=== PATIENT | female | born 1965 | race American Indian/Alaskan Native ===

== ENCOUNTER 2017-03-04 15:24 | Outpatient (CLI) | payer OTHER | END 2017-03-04 15:25 | disposition home or self-care (01) | LOC: LABHHL 15:24 | PROVIDERS: ATTEND Surgery | DX: N63 Unspecified lump in breast (principal) | CPT/HCPCS: 88305 ==

== ENCOUNTER 2017-09-16 14:40 | Emergency (ER) | payer SELFPAY ==
[2017-09-16 14:48] VITALS: BP 133/77
[2017-09-16 15:19] LABS: Basophils % (Auto) 0.6 % (0.0-1.8); Eosinophils % (Auto) 0.9 % (0.0-4.3); Hemoglobin 9.3 gm/dl (10.1-14.3); Mean Corpuscular HGB Conc 31 % (30-34); Platelet Count 307 K/mm3 (140-440); Red Blood Count 5.09 M/mm3 (3.65-5.03); Red Cell Distribution Width 19.9 % (13.2-15.2); White Blood Count 4.4 K/mm3 (4.5-11.0)
[2017-09-16 15:44] LABS: Mean Corpuscular Hemoglobin 18 pg (28-32); Mean Corpuscular Volume 59 fl (79-97)
[2017-09-16 16:59] LABS: Bilirubin,Urine NEG (Negative); Blood,Urine NEG (Negative); Ketones,Urine NEG (Negative); Leukocyte Esterase,Urine NEG (Negative); Mucus,Urine FEW /HPF; Nitrite,Urine NEG (Negative); Protein,Urine <15 mg/dL mg/dL (Negative); RBC,Urine < 1.0 /HPF (0.0-6.0); Urobilinogen,Urine < 2.0 mg/dL (<2.0)
== END 2017-09-16 21:44 | disposition left against medical advice (07) ==
LOC: ED 14:40
DX: N93.9 Abnormal uterine and vaginal bleeding, unspecified (principal); Z53.21 Procedure and treatment not carried out due to patient leaving prior to being seen by health care provider
CPT/HCPCS: 36415; 81001; 84702; 85025; 86850; 86900; 86901

== ENCOUNTER 2019-04-20 10:31 | Emergency (ER) | payer OTHER ==
[2019-04-20 10:38] VITALS: BP 152/84
[2019-04-20 11:49] LABS: Basophils % (Auto) 0.5 % (0.0-1.8); Eosinophils # (Auto) 0.1 K/mm3 (0.0-0.4); Eosinophils % (Auto) 1.3 % (0.0-4.3); Hematocrit 37.4 % (30.3-42.9); Hemoglobin 12.5 gm/dl (10.1-14.3); Lymphocytes # (Auto) 1.6 K/mm3 (1.2-5.4); Mean Corpuscular HGB Conc 33 % (30-34); Mean Corpuscular Volume 74 fl (79-97); Monocytes # (Auto) 0.4 K/mm3 (0.0-0.8); Monocytes % (Auto) 8.2 % (0.0-7.3); Platelet Count 224 K/mm3 (140-440); Red Blood Count 5.04 M/mm3 (3.65-5.03); Red Cell Distribution Width 17.3 % (13.2-15.2)
[2019-04-20 12:09] LABS: BUN/Creatinine Ratio 16; Blood Urea Nitrogen 13 mg/dL (7-17); Calcium 8.7 mg/dL (8.4-10.2); Hemolysis Index 22
--- NOTE | 2019-04-20 13:57 | Emergency Department Report ---
ED General Adult HPI - General Chief complaint: Extremity Injury, Upper Stated complaint: L ARM NUMBNESS/TINGLING Time Seen by Provider: 04/20/19 11:58 Source: patient Mode of arrival: Ambulatory Limitations: No Limitations - History of Present Illness Initial comments: Patient presents to the emergency department with a chief complaint of numbness and tingling of the left arm and mild weakness for the last 2 weeks. Patient also complains of a mild headache that she describes as throbbing in nature and not the worst headache of her life. Patient also endorses left-sided chest pain 2 weeks. Chest pain has been continuous for 2 weeks. -: Gradual Location: head, chest Radiation: non-radiation Severity scale (0 -10): 4 Quality: aching Consistency: constant Improves with: none Worsens with: none Associated Symptoms: denies other symptoms Treatments Prior to Arrival: none - Related Data Previous Rx's Medication Instructions Recorded Last Taken Type HYDROcodone/APAP 5-325 [[place] 1 each PO Q6HR PRN #30 tablet 04/01/17 Unknown Rx 5/325] Ibuprofen [Motrin] 800 mg PO Q8HR PRN #30 tablet 04/20/19 Unknown Rx Prednisone [predniSONE 10 mg 10 mg PO .TAPER #1 tab.ds.pk 04/20/19 Unknown Rx (6-Day Pack, 21 Tabs)] Allergies Allergy/AdvReac Type Severity Reaction Status Date / Time No Known Allergies Allergy Verified 04/20/19 10:33 ED Review of Systems ROS: Stated complaint: L ARM NUMBNESS/TINGLING Other details as noted in HPI Constitutional: denies: chills, fever Eyes: denies: eye pain, eye discharge, vision change ENT: denies: ear pain, throat pain Respiratory: denies: cough, shortness of breath, wheezing Cardiovascular: denies: chest pain, palpitations Endocrine: no symptoms reported Gastrointestinal: denies: abdominal pain, nausea, diarrhea Genitourinary: denies: urgency, dysuria, discharge Musculoskeletal: denies: back pain, joint swelling, arthralgia Skin: denies: rash, lesions Neurological: denies: headache, weakness, paresthesias Psychiatric: denies: anxiety, depression Hematological/Lymphatic: denies: easy bleeding, easy bruising ED Past Medical Hx - Past Medical History Previous Medical History?: No - Surgical History Hx Breast Surgery: Yes Additional Surgical History: - Social History Smoking Status: Never Smoker Substance Use Type: None - Medications Home Medications: Home Medications Medication Instructions Recorded Confirmed Last Taken Type HYDROcodone/APAP 5-325 [[place] 1 each PO Q6HR PRN #30 tablet 04/01/17 Unknown Rx 5/325] Ibuprofen [Motrin] 800 mg PO Q8HR PRN #30 tablet 04/20/19 Unknown Rx Prednisone [predniSONE 10 mg 10 mg PO .TAPER #1 tab.ds.pk 04/20/19 Unknown Rx (6-Day Pack, 21 Tabs)] ED Physical Exam - General Limitations: No Limitations General appearance: alert, in no apparent distress - Head Head exam: Present: atraumatic, normocephalic - Eye Eye exam: Present: normal appearance, PERRL, EOMI - ENT ENT exam: Present: mucous membranes moist - Neck Neck exam: Present: other (tapping midline C-spine recreates numbness and tingling of left arm) - Respiratory Respiratory exam: Present: normal lung sounds bilaterally, wheezes. Absent: respiratory distress, rales - Cardiovascular Cardiovascular Exam: Present: regular rate, normal rhythm. Absent: systolic murmur, diastolic murmur, rubs, gallop - GI/Abdominal GI/Abdominal exam: Present: soft, normal bowel sounds. Absent: distended, tenderness - Extremities Exam Extremities exam: Present: normal inspection, other (5/5/ dtrength B/L UE) - Back Exam Back exam: Present: normal inspection - Neurological Exam Neurological exam: Present: alert, oriented X3, CN II-XII intact. Absent: motor sensory deficit - Psychiatric Psychiatric exam: Present: normal affect, normal mood - Skin Skin exam: Present: warm, dry, intact, normal color. Absent: rash ED Course Vital Signs 04/20/19 04/20/19 04/20/19 10:37 12:09 12:16 Temperature 98.2 F Pulse Rate 78 66 Respiratory 16 17 20 Rate Blood Pressure 152/84 O2 Sat by Pulse 97 99 99 Oximetry 04/20/19 04/20/19 04/20/19 12:30 12:46 13:00 Temperature Pulse Rate 67 80 63 Respiratory 17 15 15 Rate Blood Pressure O2 Sat by Pulse 99 100 99 Oximetry 04/20/19 04/20/19 04/20/19 13:16 13:30 13:46 Temperature Pulse Rate 64 63 64 Respiratory 14 13 15 Rate Blood Pressure O2 Sat by Pulse 99 98 98 Oximetry ED Medical Decision Making - Lab Data Result diagrams: 04/20/19 11:36 04/20/19 11:36 Lab Results 04/20/19 04/20/19 04/20/19 Range/Units 11:36 11:36 11:36 WBC 5.1 (4.5-11.0) K/mm3 RBC 5.04 H (3.65-5.03) M/mm3 Hgb 12.5 (10.1-14.3) gm/dl Hct 37.4 (30.3-42.9) % MCV 74 L (79-97) fl MCH 25 L (28-32) pg MCHC 33 (30-34) % RDW 17.3 H (13.2-15.2) % Plt Count 224 (140-440) K/mm3 Lymph % (Auto) 31.0 (13.4-35.0) % [place] % (Auto) 8.2 H (0.0-7.3) % Eos % (Auto) 1.3 (0.0-4.3) % Baso % (Auto) 0.5 (0.0-1.8) % Lymph # 1.6 (1.2-5.4) K/mm3 [place] # 0.4 (0.0-0.8) K/mm3 Eos # 0.1 (0.0-0.4) K/mm3 Baso # 0.0 (0.0-0.1) K/mm3 Seg Neutrophils % 59.0 (40.0-70.0) % Seg Neutrophils # 3.0 (1.8-7.7) K/mm3 Sodium 138 (137-145) mmol/L Potassium 3.9 (3.6-5.0) mmol/L Chloride 102.9 (98-107) mmol/L Carbon Dioxide 23 (22-30) mmol/L Anion Gap 16 mmol/L BUN 13 (7-17) mg/dL Creatinine 0.8 (0.7-1.2) mg/dL Estimated GFR > 60 ml/min BUN/Creatinine Ratio 16 % Glucose 87 (65-100) mg/dL Calcium 8.7 (8.4-10.2) mg/dL Troponin T < 0.010 (0.00-0.029) ng/mL HCG, Qual Negative (Negative) 04/20/19 Range/Units 13:31 WBC (4.5-11.0) K/mm3 RBC (3.65-5.03) M/mm3 Hgb (10.1-14.3) gm/dl Hct (30.3-42.9) % MCV (79-97) fl MCH (28-32) pg MCHC (30-34) % RDW (13.2-15.2) % Plt Count (140-440) K/mm3 Lymph % (Auto) (13.4-35.0) % [place] % (Auto) (0.0-7.3) % Eos % (Auto) (0.0-4.3) % Baso % (Auto) (0.0-1.8) % Lymph # (1.2-5.4) K/mm3 [place] # (0.0-0.8) K/mm3 Eos # (0.0-0.4) K/mm3 Baso # (0.0-0.1) K/mm3 Seg Neutrophils % (40.0-70.0) % Seg Neutrophils # (1.8-7.7) K/mm3 Sodium (137-145) mmol/L Potassium (3.6-5.0) mmol/L Chloride (98-107) mmol/L Carbon Dioxide (22-30) mmol/L Anion Gap mmol/L BUN (7-17) mg/dL Creatinine (0.7-1.2) mg/dL Estimated GFR ml/min BUN/Creatinine Ratio % Glucose (65-100) mg/dL Calcium (8.4-10.2) mg/dL Troponin T < 0.010 (0.00-0.029) ng/mL HCG, Qual (Negative) - EKG Data -: EKG Interpreted by Me EKG shows normal: sinus rhythm Rate: normal - Radiology Data Radiology results: report reviewed - Medical Decision Making discussed results with patient Critical care attestation.: If time is entered above; I have spent that time in minutes in the direct care of this critically ill patient, excluding procedure time. ED Disposition Clinical Impression: Nonspecific chest pain, Radiculopathy of cervical region Disposition: - TO HOME OR SELFCARE Is pt being admited?: No Does the pt Need Aspirin: No Condition: Stable Instructions: Noncardiac Chest Pain (ED), Cervical Radiculopathy (ED) Additional Instructions: return if worse Prescriptions: Ibuprofen [Motrin] 800 mg PO Q8HR PRN #30 tablet PRN Reason: pain Prednisone [predniSONE 10 mg (6-Day Pack, 21 Tabs)] 10 mg PO .TAPER #1 tab.ds.pk Referrals: [facility] [facility] [Primary Care Provider] - 3-5 Days [facility] [Provider Group] - 3-5 Days [facility] [Provider Group] - 3-5 Days VICENTA SYKES MD [Staff Physician] - 3-5 Days Time of Disposition: 14:50
--- NOTE | 2019-04-20 14:13 | Cat Scan Report ---
The CT cervical spine without contrast: Left upper extremity numbness: Transverse images were obtained from the skull base through T1. Coronal and sagittal 2-D reformatted images included. There is normal vertebral alignment in the lateral projection. The frontal view C4-C7 or slightly rotated to the left. There is normal alignment of the apophyseal joints. The vertebral height is maintained at all levels. The bones appear well mineralized. No evidence of spinal or foraminal stenosis. No obvious disc protrusion. No prevertebral swelling. Impression: Mild vertebral rotation with an otherwise unremarkable exam. CRANIAL CT SCAN: Serial contiguous axial images were obtained through the cranium. Intravenous contrast material was not administered. The ventricles are normal in size and appearance. There is no mass effect or midline shift. No areas of abnormally increased or decreased attenuation are seen. No mass lesion is seen. The mastoid air cells and visualized portions of the sinuses are normal. IMPRESSION: Cranial CT scan within normal limits.
--- NOTE | 2019-04-20 14:19 | XRay Report ---
PROCEDURE: XR CHEST 1V AP TECHNIQUE: Chest radiograph single view. HISTORY: Chest Pain upt COMPARISONS: None . FINDINGS: Heart: Heart size top normal. Mediastinum/Vessels: Trachea midline. Lungs/Pleural space: Low lung volume. No acute airspace disease. No effusion.. Bony thorax: No acute osseous abnormality. Life support devices: None. IMPRESSION: No acute cardiopulmonary abnormality. This document is electronically signed by Hiren Garcia MD., Apr 20 2019 02:17:12 PM ET
== END 2019-04-20 15:21 | disposition home or self-care (01) ==
LOC: ED 10:31
DX: R07.89 Other chest pain (principal); M54.12 Radiculopathy, cervical region
CPT/HCPCS: 36415; 70450; 71045; 72125; 80048; 84484; 84703; 85025; 93005; 93010; 99285

== ENCOUNTER 2021-09-11 06:19 | Emergency (ER) | payer SELFPAY ==
--- NOTE | 2021-09-11 07:00 | Emergency Department Report ---
ED Lower Extremity HPI - General Chief Complaint: Extremity Injury, Lower Stated Complaint: LEFT KNEE PAIN Time Seen by Provider: 09/11/21 06:55 Source: patient Mode of arrival: Ambulatory Limitations: No Limitations - History of Present Illness Initial Comments: Patient presents with left knee pain. She states that for the last month, she has had been having increasing pain in the left knee. Last night and today, the pain worsened. She described as a burning and aching sensation. This is from the knee and the medial aspect and then has started to radiate downward to her ankle. There is no known trauma. She states that she does work at [employer]. 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 She believes that that could be contributing. She has no other joint pain. There is no direct trauma. There has been no fevers or chills per there is no cough or congestion. She states that the knee started to "swell yesterday as well." - Related Data Previous Rx's Medication Instructions Recorded Last Taken Type HYDROcodone/APAP 5-325 [[place] 1 each PO Q6HR PRN #30 tablet 04/01/17 Unknown Rx 5/325] Ibuprofen [Motrin 800 MG tab] 800 mg PO Q8HR PRN #30 tablet 09/11/21 Unknown Rx Allergies Allergy/AdvReac Type Severity Reaction Status Date / Time No Known Allergies Allergy Verified 04/20/19 10:33 ED Review of Systems ROS: Stated complaint: LEFT KNEE PAIN Other details as noted in HPI Comment: All other systems reviewed and negative Constitutional: denies: fever Eyes: denies: eye pain ENT: denies: throat pain Respiratory: denies: cough Cardiovascular: denies: chest pain Endocrine: denies: unexplained weight loss Gastrointestinal: denies: abdominal pain Genitourinary: denies: dysuria Musculoskeletal: denies: back pain Skin: denies: rash Neurological: denies: headache Hematological/Lymphatic: denies: easy bruising ED Past Medical Hx - Past Medical History Previous Medical History?: No - Surgical History Hx Breast Surgery: Yes Additional Surgical History: - Family History Family history: no significant - Social History Smoking Status: Never Smoker Substance Use Type: None - Medications Home Medications: Home Medications Medication Instructions Recorded Confirmed Last Taken Type HYDROcodone/APAP 5-325 [[place] 1 each PO Q6HR PRN #30 tablet 04/01/17 Unknown Rx 5/325] Ibuprofen [Motrin 800 MG tab] 800 mg PO Q8HR PRN #30 tablet 09/11/21 Unknown Rx ED Physical Exam - General Limitations: No Limitations, Other (Pulse ox is noted and normal) General appearance: alert, in no apparent distress - Head Head exam: Present: atraumatic, normocephalic, normal inspection - Eye Eye exam: Present: normal appearance, EOMI - ENT ENT exam: Present: normal exam, normal external ear exam - Neck Neck exam: Present: normal inspection. Absent: meningismus - Respiratory Respiratory exam: Absent: respiratory distress - Cardiovascular Cardiovascular Exam: Present: other (Pulses are equal and symmetric. Skin is well perfused. No JVD) - Extremities Exam Extremities exam: Present: normal capillary refill, other (Diffuse tenderness with palpation involving the left knee. Tenderness is more medial than lateral. There is no ligamentous instability. There is no joint effusion.). Absent: pedal edema - Back Exam Back exam: Present: full ROM - Neurological Exam Neurological exam: Present: alert, oriented X3, normal gait. Absent: motor sensory deficit - Psychiatric Psychiatric exam: Present: normal affect, normal mood - Skin Skin exam: Present: warm, dry ED Course - Reevaluation(s) Reevaluation #1: 09/11/21 06:58 Radiographs were ordered. ED Lower Extremity MDM - Radiology Data Radiology results: image reviewed interpreted by me: XR shows no acute fracture or dislocation. There is no large effusion or bony lesion noted. Some mild arthritic changes are present. There is no foreign body or significant soft tissue swelling. - Medical Decision Making Patient presents with knee pain that is nontraumatic in nature. There is no effusion. There is no warmth erythema. There is no edema. I do not believe this represents any type of septic arthritis or cellulitis. It is unlikely to be gout given her presentation and history. There is no radiographic evidence of acute fracture or bony lesion. There is no obvious effusion. Patient can be treated symptomatically and referred for outpatient evaluation and management. Critical Care Time: No Critical care attestation.: If time is entered above; I have spent that time in minutes in the direct care of this critically ill patient, excluding procedure time. ED Disposition Clinical Impression: Left knee pain Qualifiers: Chronicity: acute Qualified Code(s): M25.562 - Pain in left knee Disposition: HOME / SELF CARE / HOMELESS Is pt being admited?: No Condition: Stable Instructions: Acute Knee Pain, Adult, How to Use Cold Therapy, [id number], Pain Without a Known Cause Additional Instructions: Rest, ice, elevate. Use the Carlos wrap. Return for problems. Follow-up with your regular doctor for recheck and further management. Prescriptions: Ibuprofen [Motrin 800 MG tab] 800 mg PO Q8HR PRN #30 tablet PRN Reason: pain Referrals: PRIMARY CARE, [Referring] - 3-5 Days ALEAH CORONADO MD [Staff Physician] - 3-5 Days
--- NOTE | 2021-09-11 08:15 | XRay Report ---
LEFT KNEE 3 VIEWS INDICATION: pain. COMPARISON: None. IMPRESSION: No acute osseous or soft tissue abnormality. Mild medial compartment osteoarthritic c hanges are identified. Signer Name: Curtis Tsang Jr, MD Signed: 09/11/2021 8:11 AM Workstation Name: [id number]
== END 2021-09-11 08:20 | disposition home or self-care (01) ==
LOC: ED 06:19
DX: M25.562 Pain in left knee (principal); Z98.890 Other specified postprocedural states
CPT/HCPCS: 99283

== ENCOUNTER 2021-11-13 07:43 | Emergency (ER) | payer SELFPAY ==
--- NOTE | 2021-11-13 09:33 | Emergency Department Report ---
ED General Adult HPI - General Chief complaint: Fall Stated complaint: FELL AT WORK Time Seen by Provider: 11/13/21 08:23 Source: patient Mode of arrival: Ambulatory Limitations: No Limitations - History of Present Illness Initial comments: 56-year-old -[place] female patient presents with complaints of left knee pain after a fall injury at work today. Patient states a few hours after the fall she began to have right mid back pain. She denies any chest pain or shortness of breath or injuries to her back. Patient rates her current pain as a 7/10 in severity and states it worsens with ambulation, movement, and to touch. She has not tried any OTC medications for symptoms. -: Sudden - Related Data Previous Rx's Medication Instructions Recorded Last Taken Type HYDROcodone/APAP 5-325 [[place] 1 each PO Q6HR PRN #30 tablet 04/01/17 Unknown Rx 5/325] Ibuprofen [Motrin 800 MG tab] 800 mg PO Q8HR PRN #30 tablet 09/11/21 Unknown Rx Naproxen [Naprosyn] 500 mg PO BID PRN #20 tablet 11/13/21 Unknown Rx methocarbamoL [Methocarbamol] 750 mg PO TID PRN #15 tablet 11/13/21 Unknown Rx Allergies Allergy/AdvReac Type Severity Reaction Status Date / Time No Known Allergies Allergy Verified 11/13/21 07:48 ED Review of Systems ROS: Stated complaint: FELL AT WORK Other details as noted in HPI Constitutional: denies: malaise Respiratory: denies: cough Gastrointestinal: denies: abdominal pain Genitourinary: denies: frequency, hematuria Musculoskeletal: joint swelling, arthralgia Neurological: denies: numbness, paresthesias ED Past Medical Hx - Surgical History Hx Breast Surgery: Yes Additional Surgical History: - Social History Smoking Status: Never Smoker Substance Use Type: None - Medications Home Medications: Home Medications Medication Instructions Recorded Confirmed Last Taken Type HYDROcodone/APAP 5-325 [[place] 1 each PO Q6HR PRN #30 tablet 04/01/17 Unknown Rx 5/325] Ibuprofen [Motrin 800 MG tab] 800 mg PO Q8HR PRN #30 tablet 09/11/21 Unknown Rx Naproxen [Naprosyn] 500 mg PO BID PRN #20 tablet 11/13/21 Unknown Rx methocarbamoL [Methocarbamol] 750 mg PO TID PRN #15 tablet 11/13/21 Unknown Rx ED Physical Exam - General Limitations: No Limitations General appearance: alert, in no apparent distress - Head Head exam: Present: atraumatic, normocephalic - Eye Eye exam: Present: normal appearance. Absent: scleral icterus - Respiratory Respiratory exam: Present: normal lung sounds bilaterally. Absent: respiratory distress - Cardiovascular Cardiovascular Exam: Present: regular rate, normal rhythm. Absent: systolic murmur, diastolic murmur, rubs, gallop - GI/Abdominal GI/Abdominal exam: Present: soft. Absent: tenderness - Extremities Exam Extremities exam: Present: full ROM, other (Tenderness to palpation noted to anterior and posterior left knee with normal full range of motion; no skin changes noted; normal sensation is noted in the leg) - Back Exam Back exam: Present: full ROM, other (Tenderness to palpation noted to right latissimus dorsi muscles without bruising or obvious deformity noted). Absent: vertebral tenderness - Neurological Exam Neurological exam: Present: alert, oriented X3 - Psychiatric Psychiatric exam: Present: normal affect, normal mood - Skin Skin exam: Present: warm, dry, intact, normal color. Absent: rash ED Course Vital Signs 11/13/21 07:49 Temperature 98.1 F Pulse Rate 79 Respiratory 18 Rate Blood Pressure 170/101 O2 Sat by Pulse 99 Oximetry ED Medical Decision Making - Radiology Data Radiology results: report reviewed XR knee 4+V LT INDICATION / CLINICAL INFORMATION: pin and swelling after fall. COMPARISON: 09/11/2021 FINDINGS: BONES/JOINT(S): No acute fracture or subluxation. Mild DJD medial femorotibial compartment, unchanged. SOFT TISSUES: No significant abnormality. ADDITIONAL FINDINGS: None. - Medical Decision Making 56-year-old -[place] female patient presents with complaints of left knee pain after a fall injury at work today. Patient states a few hours after the fall she began to have right mid back pain. She denies any chest pain or shortness of breath or injuries to her back. Patient rates her current pain as a 7/10 in severity and states it worsens with ambulation, movement, and to touch. She has not tried any OTC medications for symptoms. X-rays negative for any acute bony abnormalities. Patient placed in Carlos wrap and provided with crutches. Treatment for knee sprain discussed with patient. She is to follow-up with orthopedics as needed. Patient is well-appearing and stable for discharge home. Patient informed to follow-up with PCP regarding her blood pressure within 2 to 3 days. Strict return precautions were discussed in detail patient verbalizes understanding Critical care attestation.: If time is entered above; I have spent that time in minutes in the direct care of this critically ill patient, excluding procedure time. ED Disposition Clinical Impression: Right low back pain, Knee pain, acute Disposition: HOME / SELF CARE / HOMELESS Is pt being admited?: No Condition: Stable Instructions: Knee Sprain, Adult, Muscle Strain, [id number] Prescriptions: methocarbamoL [Methocarbamol] 750 mg PO TID PRN #15 tablet PRN Reason: muscle spasm/tightness Naproxen [Naprosyn] 500 mg PO BID PRN #20 tablet PRN Reason: pain Referrals: KENNA MCCORD MD [Staff Physician] - as needed (orthopedics) [facility] [Provider Group] - as needed (orthopedics) [facility] [Primary Care Provider] - 2-3 Days (blood pressure) [facility] [Provider Group] - 2-3 Days (blood pressure) Forms: Work/School Release Form(ED)
--- NOTE | 2021-11-13 10:28 | XRay Report ---
XR knee 4+V LT INDICATION / CLINICAL INFORMATION: pin and swelling after fall. COMPARISON: 09/11/2021 FINDINGS: BONES/JOINT(S): No acute fracture or subluxation. Mild DJD medial femorotibial compartment, unchanged . SOFT TISSUES: No significant abnormality. ADDITIONAL FINDINGS: None. Signer Name: Ozzie Pak MD Signed: 11/13/2021 10:24 AM Workstation Name: [id number]
[2021-11-13 11:43] VITALS: BP 130/76
== END 2021-11-13 11:43 | disposition home or self-care (01) ==
LOC: ED 07:43
DX: M25.562 Pain in left knee (principal); M54.9 Dorsalgia, unspecified; W18.30XA Fall on same level, unspecified, initial encounter; Y93.89 Activity, other specified; Y92.89 Other specified places as the place of occurrence of the external cause; Y99.8 Other external cause status
CPT/HCPCS: 99283